=== PATIENT | female | born 1990 | race Caucasian/White ===

== ENCOUNTER 2021-02-04 13:12 | Emergency (ER) | payer OTHER, SELFPAY ==
[2021-02-04 13:25] VITALS: BP 135/76; PULSE 75; RESP 18; TEMP 36.6; O2SAT 100
--- NOTE | 2021-02-04 14:18 | ED.DENTAL ---
HPI - Dental/Oral General Chief complaint: Dental/Oral Stated complaint: abscess/mouth Source: patient Mode of arrival: ambulatory Limitations: no limitations History of Present Illness HPI Narrative: Patient is a 30-year-old female who presents with left lower dental pain x2 to 3 days. She reports taking [id number] medications with limited relief. She reports she has had broken tooth. Patient reports that she has a dental appointment on 02/08. Patient denies significant medical history. Patient denies all other complaints at this time. MD Complaint: tooth pain Related Data Home Medications Medication Instructions Recorded Confirmed clonidine HCl 0.1 mg PO HS 02/04/21 02/04/21 fluoxetine 40 mg PO DAILY 02/04/21 02/04/21 Allergies Allergy/AdvReac Type Severity Reaction Status Date / Time iodine Allergy Rash Verified 02/04/21 13:30 Review of Systems Review of Systems: CONSTITUTIONAL: Denies fever, chills, or sweats. EYES: Denies visual changes, redness, or discharge. ENT: Denies rhinorrhea, congestion, sore throat, or otalgia. Reports dental pain CARDIOVASCULAR: Denies chest pain, palpitations, or edema. RESPIRATORY: Denies cough or dyspnea. GASTROINTESTINAL: Denies abdominal pain, nausea, vomiting, or diarrhea. GENITOURINARY: Denies dysuria or hematuria. SKIN: Denies rash or itching. MUSCULOSKELETAL: Denies back pain, joint pain, or myalgia. NEUROLOGIC: Denies headache, numbness, dizziness, or weakness. PSYCHIATRIC: Denies anxiety or depression. [facility] Social History Social History (Updated 02/04/21 @ 14:26 by KITTY Flores) Smoking status: Current every day smoker Tobacco type: e-cigarettes/vaping Alcohol intake: current Alcohol use details: Occasional Substance use: never Living arrangements: with family Comments At the time of signature, I have reviewed and agree with nursing past medical, surgical, social, and family history unless otherwise noted. Please see nursing chart for further information. There is no relevant family history pertinent to the presenting complaint. Exam Narrative: GENERAL: Well-appearing, well-nourished, and in no acute distress. HEAD: Normocephalic, atraumatic. EYES: EOMI. No redness or drainage. Conjunctiva are normal. Multiple dental caries and dental fractures, poor dentition ENT: Mucous membranes pink and moist. CHEST: No respiratory distress. HEART: Regular rate and rhythm. EXTREMITIES: Normal range of motion. SKIN: Warm, dry, no rash. NEURO: No focal deficits. Alert and oriented x3. Gait steady. PSYCH: Normal affect. No signs of depression or anxiety. Course Vital Signs Vital signs: Vital Signs Temperature 36.6 C 02/04/21 13:25 Pulse Rate 75 02/04/21 13:25 Respiratory Rate 18 02/04/21 13:25 Blood Pressure 135/76 02/04/21 13:25 Pulse Oximetry 100 02/04/21 13:25 Temperature 36.6 C 02/04/21 13:25 Pulse Rate 75 02/04/21 13:25 Respiratory Rate 18 02/04/21 13:25 Blood Pressure 135/76 02/04/21 13:25 Pulse Oximetry 100 02/04/21 13:25 MDM - Dental/Oral MDM Narrative Medical decision making narrative: Patient has dental abscess and fracture of the left lower molar. Discussed with patient taking antibiotics and use of ibuprofen for pain. Patient encouraged to attend 02/08 dental appointment. Patient agrees with plan of care. Patient is stable for discharge to home with outpatient follow-up as discussed. Differential Diagnosis Differential diagnosis: Likely gingival abscess, dental caries, toothache, dental abscess and fracture of tooth Critical Care Time Critical Care Time Critical Care Time: No Discharge Plan Discharge Clinical Impression: Dental caries, Toothache, Dental abscess Patient Disposition: Home, Self-Care Condition: Stable Instructions: Antibiotic Form, Acute Dental Trauma (ED) Additional Instructions: Take antibiotics as directed. Follow-up with dentist on 02/08
== END 2021-02-04 14:39 | disposition home or self-care (01) ==
PROVIDERS: Emergency Provider Nurse Practitioner
DX: K02.9 Dental caries, unspecified (principal); K08.89 Other specified disorders of teeth and supporting structures; K04.7 Periapical abscess without sinus; F17.200 Nicotine dependence, unspecified, uncomplicated
CPT/HCPCS: 99213; G0463

== ENCOUNTER 2021-11-10 19:27 | Emergency (ER) | payer OTHER, SELFPAY ==
[2021-11-10 19:31] VITALS: BP 119/70; PULSE 90; RESP 16; TEMP 36.9; O2SAT 99
--- NOTE | 2021-11-10 20:23 | ED.FEMALEGU ---
HPI - Female Genitourinary General Chief complaint: Abdominal Pain Stated complaint: 7 weeks , cramping/spotting Time Seen by Provider: 11/10/21 19:52 History of Present Illness HPI Narrative: This is a 31-year-old female LMP 23 Sep 2021, who presents to the emergency department complaining of intermittent spotting twice today associated with cramping. She states she noted small amount of spotting after bowel movement earlier this morning, and had a repeat episode today. She denies bleeding from any other source and is sure she has had no blood in stool. She denies dysuria, fevers, chills, severe abdominal pain or passage of clots. She is attempting to wean herself from Paxil, but has otherwise had no change in her health. She is followed by OB here but has not had an initial ultrasound. She has no other complaints today. Related Data Home Medications Medication Instructions Recorded Confirmed clonidine HCl 0.1 mg tablet 0.1 mg PO HS 02/04/21 02/04/21 fluoxetine 40 mg capsule 40 mg PO DAILY 02/04/21 02/04/21 Allergies Allergy/AdvReac Type Severity Reaction Status Date / Time iodine Allergy Rash Verified 11/10/21 19:45 Review of Systems Review of Systems: CONSTITUTIONAL: Denies fever, chills, or sweats. CARDIOVASCULAR: Denies chest pain, palpitations, or edema. RESPIRATORY: Denies cough or dyspnea. GASTROINTESTINAL: Denies abdominal pain, nausea, vomiting, or diarrhea. GENITOURINARY: Cramping and vaginal bleeding, denies dysuria or hematuria. SKIN: Denies rash or itching. MUSCULOSKELETAL: Denies back pain, joint pain, or myalgia. NEUROLOGIC: Denies headache, numbness, dizziness, or weakness. PSYCHIATRIC: Denies anxiety or depression. [facility] Social History Social History Smoking status: Current every day smoker Tobacco type: e-cigarettes/vaping Alcohol intake: current Alcohol use details: Occasional Substance use: never Exam Narrative: GENERAL: Well-appearing, well-nourished, and in no acute distress. HEAD: Normocephalic, atraumatic. EYES: PERRLA and EOMI. ENT: Nares clear, no rhinorrhea or epistaxis. Mucous membranes moist. Oropharynx without tonsillar hypertrophy exudate or other lesions. CHEST: Clear to auscultation. No respiratory distress. No wheezes rales or rhonchi HEART: Regular rate and rhythm. No murmur heard. Normal peripheral pulses. ABDOMEN: Soft, nontender, nondistended, normal active bowel sounds. : (Chaperoned by female avionics electronics technician), Scant bleeding noted from the cervical os -which is closed. No noted products of conception. No purulent discharge EXTREMITIES: Normal range of motion. No edema. SKIN: Warm, dry, no rash. NEURO: No focal deficits. Alert and oriented x3. PSYCH: Normal mood and affect. Course Course Emergency Course: 20:30 - Bedside ultrasound shows intrauterine without intra-abdominal free fluid. Unable to assess cardiac activity. 20:56 - UA not concerning for urinary tract infection. Vital Signs Vital signs: Vital Signs Temperature 98.4 F 11/10/21 19:31 Pulse Rate 90 11/10/21 19:31 Respiratory Rate 16 11/10/21 19:31 Blood Pressure 119/70 11/10/21 19:31 Pulse Oximetry 99 11/10/21 19:31 Oxygen Delivery Room Air 11/10/21 19:31 Temperature 98.4 F 11/10/21 19:31 Pulse Rate 90 11/10/21 19:31 Respiratory Rate 16 11/10/21 19:31 Blood Pressure 119/70 11/10/21 19:31 Pulse Oximetry 99 11/10/21 19:31 Oxygen Delivery Room Air 11/10/21 19:31 MDM - Female Genitourinary MDM Narrative Medical decision making narrative: Clinical diagnosis: Vaginal bleeding Plan: Bedside US, UA, Type and Screen Differential Diagnosis Differential diagnosis: Likely urinary tract infection and other (miscarriage) Lab Data Labs: Lab Results 11/10/21 11/10/21 11/10/21 Range/Units 20:25 20:25 20:25 Urine Color Yellow (Yellow) Urine Appearance Sligh
[2021-11-10 20:40] LABS: Appearance Urine Slightly Cloudy (Clear); Bilirubin Urine Negative (Negative); Blood Urine 1+ (Negative); Color Urine Yellow (Yellow); Glucose Urine UA Negative (Negative); Ketones Urine Negative (Negative); Leukocyte Esterase Ur Negative LEU/UL (Negative); Nitrate Urine Negative (Negative); Protein Urine Negative (Negative); Specific Grav Ur 1.025 (1.001-1.035); Urobilinogen Urine 0.2 mg/dL (<2.0)
[2021-11-10 20:47] LABS: Amorphous Sediment Urine Few; Mucus Urine Rare /lpf; Squamous Epithelial Cell Urine Occasional /hpf (Few)
[2021-11-10 20:49] LABS: Add Urine Microscopic? YES
[2021-11-10 22:08] VITALS: BP 110/71; PULSE 75; RESP 16; O2SAT 100
== END 2021-11-10 22:07 | disposition home or self-care (01) ==
PROVIDERS: Emergency Provider Preventive Medicine Aerospace Medicine
DX: O20.0 Threatened abortion (principal); O99.331 Smoking (tobacco) complicating pregnancy, first trimester; F17.290 Nicotine dependence, other tobacco product, uncomplicated; Z3A.01 Less than 8 weeks gestation of pregnancy
CPT/HCPCS: 36415; 81001; 86850; 86900; 86901; 87491; 87591; 87808; 99284

== ENCOUNTER 2024-10-10 09:33 | Emergency (ER) | payer OTHER, SELFPAY ==
--- OUTSIDE RECORDS SUMMARY | 2024-10-10 09:34 | XMS_ITS | Clinical Summary ---
Author Organization [facility] [employer] Address [address] [place] [address] Care Team Providers Care Centrifugal Station Operator Name Role Phone Harjeet Isidro MD Primary Care Provider [phone] Source Comments [facility],non-owned Affiliates and Associated Physician Practices is amultiple site organization consisting of ambulatory clinics and hospital sitesin [place], [place], [place] and [place]. This disclosure is being madepursuant to the Care Everywhere program and may not contain all information available regarding this patient. Last updated 18.[facility] [employer] Allergies Active Allergy Reactions Criticality Noted Date Comments Iodine Rash Low 12/15/2012 Hydrocodone-Acetaminophen 06/10/2014 Medications * Be aware that medications may not be up to date on this document. Alwaysverify current medications with the patient. valACYclovir (VALTREX) 500 MG tablet Take 1 Tab by mouth once daily 30 Tab 12 10/25/2014 Active Family History Medical History Relation Name Comments Seizures Mother Relation Name Status Comments Mother Social History Tobacco Use Types Packs/Day Years Used Date Smoking Tobacco: Light Smoker Cigarettes Tobacco Cessation:Counseling Given: Yes Alcohol Use Standard Drinks/Week Comments Yes 2.5 (1 standard drink = 0.6 oz p ure alcohol) Comments No Sex and Gender Information Value Date Recorded Sex Assigned at Not on file Legal Sex Female 4:52 PM CDT Gender Identity Not on file Sexual Orientation Not on file Occupation Industry Job Start Date Job End Date Student Not on file Not on file Not on file Last Filed Vital Signs Vital Sign Reading Time Taken Comments Blood Pressure 110/70 10/25/2014 2:41 PM CDT Pulse 82 06/25/2013 9:25 AM CLAY DRY PRESS OPERATOR Temperature - - Respiratory Rate 12 10/25/2014 2:41 PM CDT Oxygen Saturation - - Inhaled Oxygen Concentration - - Weight 73.2 kg (161 lb 6.4 oz) 10/25/2014 2:41 P M CDT Height 167.6 cm (5' 6) 10/25/2014 2:41 PM CDT Body Mass Index 26.05 10/25/2014 2:41 PM CDT Plan of Treatment Health Maintenance Due Date Last Done Comments DTAP/TDAP/TD VACCINES (1 - Tdap) 09/06/2011 HEPATITIS B VACCINE (1 of 3 - 19+ 3-dose series) 09/06/2011 COVID-19 VACCINE ( - 2023-2 5 season) 2023 DEPRESSION SCREENING 04/29/2024 INFLUENZA VACCINE (Season Ended) 2024 ZOSTER VACCINE (1 of 2) 2042 HEPATITIS C SCREENING Completed 06/25/2013 HIV SCREENING Completed 06/25/2013 HIB VACCINE Aged Out No longer eligi ble based on patient's age to complete this topic HPV VACCINE Aged Out No longer eligi ble based on patient's age to complete this topic MENINGOCOCCAL (Group B) VACC INE SHARED DECISION-MAKING Aged Out No longer eligibl e based on patient's age to complete this topic MENINGOCOCCAL GROUPS A/C/Y/W VACCINE Aged Out No longer eligible b ased on patient's age to complete this topic PNEUMOCOCCAL VACCINE Aged Out No long er eligible based on patient's age to complete this topic Procedures Procedure Name Priority Date/Time Associated Diagnosis Comments HEPATITIS SCREEN ACUTE Routine 06/25/2013 10:29 AM CLAY DRY PRESS OPERATOR High risk sexual behavior HIV-1 HIV-2 ANTIBODY Routine 06/25/2013 10:29 AM CLAY DRY PRESS OPERATOR High risk sexual behavior from Last 3 Months or Most Recently Relevant to Health Maintenance Results * HIV-1 HIV-2 ANTIBODY (06/25/2013 10:29 AM CLAY DRY PRESS OPERATOR) HIV-1 Antibody O.D. Ratio <1.00 <1.00 [facility] ACCOUNT BILL Comment:Index Value: Specime n reactivity relative to the negative cutoff. HIV-1/HIV-2 Non Reactive Non Reactive [facility] ACCOUNT BILL Blood specimen (specimen) BLOOD SPECIMEN / Unknown 06/25/2013 10:29 AM CLAY DRY PRESS OPERATOR 06/25/2013 12:53 PM CLAY DRY PRESS OPERATOR Narrative Resulting Agency Comment [facility] [address] [id number] Christie Solomon MD LAB - CHEMISTRY ORDERABLES Fin al Result Performing Organization Address City/[facility] Co de Phone Number [facility] ACCOUNT BILL [address] [place] [address] * HEPATITIS SCREEN ACUTE (06/25/2013 10:29 AM CLAY DRY PRESS OPERATOR) Hepatitis A Virus Antibody IgM Negative Negative [facility] ACCOUNT BILL Hepatitis B Virus Surface Antigen Negative Negative [facility] ACCOUNT BILL Hepatitis B Core Virus Antibody IgM Negative Negative [facility] ACCOUNT BILL Hepatitis C Antibody 0.2 0.0 - 0.9 s/co ratio [facility] ACCOUNT BILL Comment: Negative: < 0.8 Indeterminate 0.8 - 0.9 Positive: > 0.9 . In order to reduce the incidence of a false positive result, the CDC recommends that all s/co ratios between 1.0 and 10.9 be confirmed by a more specific supplemental or PCR testing. [facility] offers HCV Ab w/Reflex to Verification test #[id number]. Blood specimen (specimen) BLOOD SPECIMEN / Unknown 06/25/2013 10:29 AM CLAY DRY PRESS OPERATOR 06/25/2013 12:53 PM CLAY DRY PRESS OPERATOR Narrative Resulting Agency Comment [facility] [address] [id number] Christie Solomon MD LAB - CHEMISTRY ORDERABLES Fin al Result Performing Organization Address City/[facility] Co de Phone Number [facility] ACCOUNT BILL [address] [place] [address] from Last 3 Months or Most Recently Relevant to Health Maintenance Insurance [facility] Care Teams Centrifugal Station Operator Relationship Specialty Start Date End Date Harjeet Isidro MD PCP - General Family Medicine 03/18/13
--- OUTSIDE RECORDS SUMMARY | 2024-10-10 09:35 | XMS_ITS | Referral Summary ---
Author Organization [address] Address [address] [place] [id number] Care Team Providers Care Biometrics Analyst Name Role Phone No, Physician Primary Care Provider [phone] Encounters Date Type Department Care Team Description 08/27/2024 2:47 PM CDT - 08/27/2024 5:39 PM CDT Emergency [facility] Emergency Department [address] [place], [place] [address] Sly Hood MD Chest pain of unknown etiology (Primary Dx) Discharge Disposition: Discharge to home or self care from Last 3 Months Allergies Active Allergy Reactions Criticality Noted Date Comments Hydrocodone Hydrocodone-Acetaminophen Stomach upset 015 Reaction: GI UPSET, Iodine Rash Medium 12/15/2012 Reaction: RASH, Medications [id number] 25 mg iron-1 mg -400 mg combo pack Take by mouth Active valACYclovir (VALTREX) 500 mg tabletIndications: Prophylaxis, Medical Take 500 mg by mouth 2 (two) times a day Active benzocaine-menthoL (DERMOPLAST) 20-0.5 % aerosolIndications :Minor Skin Wound Pain Apply 1 application (1 spray total) topically as needed for other or pain (perianal area for pain) 1 g 1 06/26/19 23 Active ibuprofen (ADVIL,MOTRIN) 600 mg tabletIndications: Cramps Take 1 tablet (600 mg total) by mouth every 6 (six) hours as needed for pain 30 tablet 1 06/26/19 23 Active FLUoxetine (PROzac) 20 mg capsule Take 1 capsule (20 mg total) by mouth daily 10/06/19 24 Active naproxen (NAPROSYN) 500 mg tabletIndications: Abdominal wall strain, initial encounter Take 1 tablet (500 mg total) by mouth 2 (two) times a day with meals P.r.n. pain. Collaborating physician Roderick Núñez MD 20 tablet 12/25/19 24 Active tiZANidine (ZANAFLEX) 4 mg tabletIndications: Abdominal wall strain, initial encounter Take 1 tablet (4 mg total) by mouth every 6 (six) hours as needed (Take as directed to relax muscles) Collaborating physician Roderick Núñez MD 20 tablet 12/25/[address] (PROTONIX) 40 mg EC tablet Take 1 tablet (40 mg total) by mouth daily 30 tablet 05/08/19 25 Active sucralfate (CARAFATE) 1 gram tablet Take 1 tablet (1 g total) by mouth 4 (four) times a day 120 tablet 05/08/19 25 Active dicyclomine (BENTYL) 20 mg tablet Take 1 tablet (20 mg total) by mouth 2 (two) times a day for 20 days 20 tablet 05/08/19 25 Active ondansetron ODT (ZOFRAN-ODT) 4 mg disintegrating tablet Take 1 tablet (4 mg total) by mouth every 8 (eight) hours as needed for nausea or vomiting 20 tablet 05/08/19 25 Active Active Problems Problem Noted Date Diagnosed Date Abdominal wall strain, initial encounter 024 Term 06/25/2022 Acute cervicitis 06/22/2019 Pelvic pain 06/22/2019 Dysuria 05/14/2018 Urinary frequency 05/14/2018 Flank pain, acute 05/14/2018 Nausea 05/14/2018 Acute streptococcal pharyngitis 05/09/2016 Overview (08/03/2016): Strep throat Dry skin 05/09/2016 Overview (08/03/2016): Dry skin Viral upper respiratory tract infection 05/09/19 17 Overview (08/03/2016): Viral upper respiratory tract infection Strain of shoulder 12/13/2014 Overview (08/03/2016): Left shoulder strain Upper respiratory tract infection 08/13/2014 Overview (08/03/2016): URI (upper respiratory infection) Immunizations Immunization Administration Dates Next Due Influenza, Trivalent, IM (MDV) 02/07/2016 Tdap 12/26/2015 Social History Tobacco Use Types Packs/Day Years Used Date Smoking Tobacco: Former Smokeless Tobacco: Never Tobacco Cessation:Counseling Given: Not Answered Alcohol Use Standard Drinks/Week Comments Yes 0 (1 standard drink = 0.6 oz pur e alcohol) Social Connection and Isolat ion Panel [NHANES] Answer Date Recorded Frequency of Communication w ith Friends and Family Not on file 06/25/2022 How often do you get togethe r with friends or relatives? More than three times a week 06/25/2022 How often do you attend chur ch or jehovah's witness services? Never 06/25/2022 Do you belong to any clubs o r organizations such as taoism groups, unions, fraternal or athletic groups, or school groups? No 06/25/2022 How often do you attend meet ings of the clubs or organizations you belong to? Never 06/25/2022 Are you , , di vorced, , never , or living with a partner? 06/25/2022 AUDIT-C Answer Date Recorded Q1: How often do you have a drink containing alcohol? Never 06/25/2022 Q2: How many drinks containi ng alcohol do you have on a typical day when you are drinking? Patient does not drink Q3: How often do you have si x or more drinks on one occasion? Never 06/25/2022 Overall Financial Resource Strain (CARDIA) Answe r Date Recorded How hard is it for you to pa y for the very basics like food, housing, medical care, and heating? Not hard at all 06/25/2022 PHQ-2 Answer Date Recorded PHQ-2 Total Score (If total score is 3 or more points, staff should administer the PHQ-9) 0 06/25/2022 [facility] [employer] - Occupational Stress Questionnaire Answer Date Recorded Do you feel stress - tense, restless, nervous, or anxious, or unable to sleep at night because your mind is troubled all the time - these days? Not at all 06/25/2022 Exercise Vital Sign Answer Date Recorde d On average, how many days pe r week do you engage in moderate to strenuous exercise (like a brisk walk)? 3 days 06/25/2022 On average, how many minutes do you engage in exercise at this level? 30 min 06/25/2022 Hunger Vital Sign Answer Date Recorded Within the past 12 months, y ou worried that your food would run out before you got the money to buy more. Never true 06/25/19 23 Within the past 12 months, t he food you bought just didn't last and you didn't have money to get more. Never true 06/25/2022 PRAPARE - Transportation Answer Date Re corded In the past 12 months, has l ack of transportation kept you from medical appointments or from getting medications? No 05/31 In the past 12 months, has l ack of transportation kept you from meetings, work, or from getting things needed for daily living? No 06/25/2022 Housing Stability Vital Sign Answer Boaz e Recorded In the last 12 months, was t here a time when you were not able to pay the mortgage or rent on time? No 06/25/2022 In the last 12 months, how many places have you lived? 1 06/25/2022 In the last 12 months, was t here a time when you did not have a steady place to sleep or slept in a chcf (including now)? No 06/25/2022 Personal Safety Answer Date Recorded Have you ever been in or are you currently in a harmful physical or emotional relationship or is someone making you feel afraid or unsafe? 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 Gender Identity Not on file Sexual Orientation Not on file Last Filed Vital Signs Vital Sign Reading Time Taken Comments Blood Pressure 110/58 08/27/2024 5:15 PM CDT Pulse 84 08/27/2024 5:15 PM CDT Temperature 36.4 C (97.6 F) 08/27/2024 2:45 PM CDT Respiratory Rate 20 08/27/2024 5:15 PM CDT Oxygen Saturation 99% 08/27/2024 5:15 PM CDT Inhaled Oxygen Concentration - - Weight 99.8 kg (220 lb) 08/27/2024 2:45 PM CDT Height 167.6 cm (5' 6) 08/27/2024 2:45 PM CDT Body Mass Index 35.51 08/27/2024 2:45 PM CDT Plan of Treatment Not on file Procedures Procedure Name Priority Date/Time Associated Diagnosis Comments TROPONIN T HIGH-SENSITIVITY 2-HOUR Timed 08/27/2024 4:40 PM CDT HCG, URINE, QUALITATIVE STAT 08/27/2024 3:42 PM CDT DRUGS OF ABUSE SCREEN, URINE WITHOUT CONFIRMATION STAT 08/27/2024 3:42 PM CDT URINALYSIS AND REFLEX TO MICROSCOPIC AND CULTURE STAT 08/27/2024 3:42 PM CDT D-DIMER, QUANTITATIVE Add-On 08/27/2024 3:35 PM CDT XR CHEST 1 VIEW ED 08/27/2024 3:10 PM CDT EGFR STAT 08/27/2024 3:02 PM CDT PRO B-TYPE NATRIURETIC PEPTIDE Add-On 08/27/2024 3:02 PM CDT DIFFERENTIAL AUTO STAT 08/27/2024 3:0 2 PM CDT TROPONIN T HIGH-SENSITIVITY SERIES (BASELINE, 2HR, 4HR, 6HR) STAT 08/27/2024 3:02 PM CDT COMPREHENSIVE METABOLIC PANEL STAT 08/27/2024 3:02 PM CDT CBC WITH AUTO DIFFERENTIAL STAT 08/27/2024 3:02 PM CDT ECG 12-LEAD STAT 08/27/2024 2:48 PM CDT from Last 3 Months Results * Troponin T high-sensitivity 2-hour (08/27/2024 4:40 PM CDT) Trop T hs <6 <=14 ng/L Comment: Interpretive Data For further hscTnT resources including the diagnostic algorithm and an aid in interpretation, copy and paste this link: https://nrl.testcatalog.org/show/hsTrop Current Interpretive Data last revised 2020. Trop T hs delta 0 ng/L [facility] Trop T hs interp Insignificant [facility] Blood 08/27/2024 4:40 PM CDT 08/27/2024 4:42 PM CDT Sly Hood MD LAB BLOOD ORDERABLES Final R esult [facility] ([facility]) 1 [facility] Department [place] [address] * Urinalysis reflex to microscopic and culture Urine (08/27/2024 3:42 PM CDT) Color, ur Straw Yellow Clarity, ur Clear Clear [facility] ([facility]) Specific gravity, ur 1.008 1.003 - 1.030 [facility] pH, urine 7.5 [facility] ([place]) Comment: Interpretive Data U rine pH is affected by diet, medications, systemic acid-base disturbances, and renal tubular function. pH may affect urinary stone formation. For example, urine pH below 6.0 may help reduce the tendency for calcium phosphate stones and pH greater than 6.0 may reduce the tendency for uric acid stone formation. Source: [facility] [place] Current Interpretive Data was last revised on 2017 Protein, ur ql Negative Negative [facility] ([place]) Glucose, ur ql Negative Negative [facility] ([place]) Ketones, ur Negative Negative [facility]) Bilirubin, ur Negative Negative [facility] ([place]) Blood, ur Negative Negative [facility]) Urobilinogen, ur <2.0 <2.0 mg/dL [facility] ([place]) Nitrite, ur Negative Negative [facility] ([facility]) Leukocyte esterase, ur Negative Negative [facility] UA reflex comment Reflex conditions for microscopic UA and culture not met. [facility] Urine 08/27/2024 3:42 PM CDT 08/27/2024 3:45 PM CDT Sly Hood MD LAB MICROBIOLOGY - GENERAL O RDERABLES Final Result [facility] 1 [facility] Department of Laboratories [id number] * Drugs of Abuse Screen, Urine without Confirmation (08/27/2024 3:42 PM CDT) Amphetamine, ur Not Detected CutOff 500ng/mL Comment: Interpretive Data - Amphetamines: Samples containing greater than 500 ng/mL d-methamphetamine or other cross-reacting amphetamine compounds are reported as positive. Amphetamine immunoassays are subject to significant false positive rates due to cross-reactivity of non-amphetamine drugs. Confirmatory testing required for definitive results. Current Interpretive Data was last reviewed 2022. Barbiturates, ur Not Detected CutOff 200ng/mL [facility] Comment: Interpretive Data - Barbiturates: Samples containing greater than 200 ng/mL secobarbital or other cross-reacting barbiturate compounds are reported as positive. False positive and false negative results are possible. Confirmatory testing required for definitive results. Current Interpretive Data was last reviewed 2022. Benzodiazepines, ur Not Detected CutOff 100ng/mL [facility] Comment: Interpretive Data - Benzodiazepines: Samples containing greater than 100 ng/mL nordiazepam or other cross-reacting compounds are reported as positive. False positive and false negative results are possible. Confirmatory testing required for definitive results. Current Interpretive Data was last reviewed 2022. Cannabinoids, ur Not Detected CutOff 50 ng/mL [facility] Comment: Interpretive Data - Cannabinoids: Samples containing greater than 50 ng/mL delta-9 THC -COOH or other cross- reacting compounds are reported as positive. False positive and false negative results are possible. Confirmatory testing required for definitive results. Current Interpretive Data was last reviewed 2022. Cocaine, ur Not Detected CutOff 150ng/mL [facility] ([facility]) Comment: Interpretive Data - Cocaine: Samples containing greater than 150 ng/mL benzoylecgonine or other cross- reacting compounds are reported as positive. False positive and false negative results are possible. Confirmatory testing required for definitive results. Current Interpretive Data was last reviewed 2022. Fentanyl, Ur Not Detected CutOff 5 ng/mL [facility] Comment: Interpretive Data - Fentanyl: Samples containing greater than 5 ng/mL norfentanyl, fentanyl, or other cross-reacting fentanyl compounds are reported as positive. False positive and false negative results are possible. Confirmatory testing required for definitive results. Current Interpretive Data was last reviewed 2023. Methadone, ur Not Detected CutOff 300ng/mL [facility] Comment: Interpretive Data - Methadone: Samples containing greater than 300 ng/mL d,l-methadone or other cross-reacting compounds are reported as positive. False positive and false negative results are possible. Confirmatory testing required for definitive results. Current Interpretive Data was last reviewed 2022. Opiates, ur Not Detected CutOff 300ng/mL [facility] ([facility]) Comment: Interpretive Data - Opiates: Samples containing greater than 300 ng/mL morphine or other cross-reacting compounds are reported as positive. False positive and false negative results are possible. Confirmatory testing required for definitive results. Current Interpretive Data was last reviewed 2022. Oxycodone, ur Not Detected CutOff 100ng/mL [facility] ([facility]) Comment: Interpretive Data - Oxycodone: Samples containing greater than 100 ng/mL oxycodone or other cross-reacting compounds are reported as positive. False positive and false negative results are possible. Confirmatory testing required for definitive results. Current Interpretive Data was last reviewed 2022. Phencyclidine, ur Not Detected CutOff 25 ng/mL [facility] ([facility]) Comment: Interpretive Data - Phencyclidine: Samples containing greater than 25 ng/mL phencyclidine or other cross-reacting compounds are reported as positive. False positive and false negative results are possible. Confirmatory testing required for definitive results. Current Interpretive Data was last reviewed 2022. Urine Creatinine 41 mg/dL [facility] ([facility]) Comment: Interpretive Data Urine Creatinine: < 10 mg/dL is extremely dilute = or > 10 but < 20 mg/dL is dilute = or > 20 mg/dL is normal Current Interpretive Data was last revised on 2017. Urine 08/27/2024 3:4 2 PM CDT 08/27/2024 3:45 PM CDT Narrative [facility] - 08/27/2024 4:10 PM CDT Drug of Abuse screening is performed by immunoassay for medical purposes only. This is not to be used for Pain Management purposes. Sly Hood MD LAB URINE ORDERABLES Final R esult Performing Organization Address City/[facility]/ZIP Co de Phone Number [facility] 1 [facility] [place] [address] * hCG, urine, qualitative (08/27/2024 3:42 PM CDT) HCG, ur Negative Negative Urine 08/27/2024 3:42 PM CDT 08/27/2024 3:45 PM CDT Sly Hood MD LAB URINE ORDERABLES Final R [facility] Performing Organization Address City/[facility] [[email or web address]] Co de Phone Number [facility] 1 [facility] [place] [address] * D-dimer, quantitative (08/27/2024 3:35 PM CDT) D-Dimer 363 <=499 ng/mL FEU [facility] Comment: Interpretive data FDA approved the D-dimer, in conjunction with a low or moderate pretest probability score, to exclude venous thromboembolic events (VTE) (PE and DVT) in outpatients when the D-dimer result is < 500 ng/ml FEU. Evidence supports using an age-adjusted D-dimer cut-off for outpatients older than 50 (age x 10) to improve specificity without sacrificing sensitivity. Example: age 68, VTE cut-off 680 ng/ml FEU. References; Schouten HT et al. Brit Med J. 2013;346:f2492. Karly et al. Annals Int Med. 2015;163:701-11. Current interpretive data was last revised on 2019. Blood 08/27/2024 3:35 PM CDT 08/27/2024 3:41 PM CDT Sly Hood MD LAB BLOOD ORDERABLES Final R esult [facility] 1 [facility] Department of Laboratories [address] * XR Chest 1 Vw Portable (if patient condition/safety warrant portable) (08/27/2024 3:10 PM CDT) Anatomical Region Laterality Modality Body, Chest N/A Computed Radiogr aphy 08/27/2024 3:39 PM CDT Narrative 08/27/2024 3:41 PM CDT EXAM DESCRIPTION: XR CHEST 1 VIEW REASON FOR STUDY: chest pain Pt to ED for c/o chest pain that radiates to her left shoulder and dizziness x 1 hour. Pt reports it started with SOB 2 hours ago. No cardiac hx. TECHNIQUE: Single frontal radiographic view(s) of the chest. COMPARISON: 11/16/2019 FINDINGS: The heart, mediastinum, and pulmonary vasculature are grossly unremarkable. There is no definite evidence of a pneumothorax. There is no definite evidence of focal consolidation or pleural effusion. Osseous structures are acutely grossly stable IMPRESSION: No acute cardiopulmonary abnormality. THIS IS AN ELECTRONICALLY VERIFIED FINAL REPORT 08/27/2024 3:41 PM - Electronically signed by Kostas Heart D.O. PS: PS Report ID: [id number] Reading Location: [id number] Procedure Note Kostas Heart DO - 08/27/2024 EXAM DESCRIPTION: XR CHEST 1 VIEW REASON FOR STUDY: chest pain Pt to ED for c/o chest pain that radiates to her left shoulder anddizziness x 1 hour. Pt reports it started with SOB 2 hours ago. No cardiac hx. TECHNIQUE: Single frontal radiographic view(s) of the chest. COMPARISON: 11/16/2019 FINDINGS: The heart, mediastinum, and pulmonary vasculature are grosslyunremarkable. There is no definite evidence of a pneumothorax. There is no definite evidence of focal consolidation or pleural effusion. Osseous structures are acutely grossly stable IMPRESSION: No acute cardiopulmonary abnormality. THIS IS AN ELECTRONICALLY VERIFIED FINAL REPORT 08/27/2024 3:41 PM - Electronically signed by Kostas Heart D.O. PS: PS Report ID: [id number] Reading Location: [place] [address] Sly Hood MD IMG XR PROCEDURES Final Resu lt * Troponin T high-sensitivity series (baseline, 2hr, 4hr, 6hr) (08/27/2024 3:02 PM CDT) Pathologist [facility] Trop T hs <6 <=14 ng/L Comment: Interpretive Data For further hscTnT resources including the diagnostic algorithm and an aid in interpretation, copy and paste this link: https://nrl.testcatalog.org/show/hsTrop Current Interpretive Data last revised 2020. Blood 08/27/2024 3:02 PM CDT 08/27/2024 3:06 PM CDT Sly Hood MD LAB BLOOD ORDERABLES Final R esult [facility] Department of Laboratories [address] * eGFR (08/27/2024 3:02 PM CDT) [facility] eGFR >90 >=60 mL/min/1. 73 m2 Comment: Interpretive Data Reference Interval Normal >/= 90 mL/min/1.73m2 Mildly decreased* 60 - 89 mL/min/1.73m2 Mildly to moderately decreased 45 - 59 mL/min/1.73m2 Moderately to severely decreased 30 - 44 mL/min/1.73m2 Severely decreased 15 - 29 mL/min/1.73m2 Kidney Failure < 15 mL/min/1.73m2 *Relative to young adult level Estimated glomerular filtration rate is determined by the 2020 CKD-EPI equation recommended by the National Kidney Foundation (A Unifying Approach to GFR Estimation: Recommendations of the NKF-ASK Task Force on Reassessing the Inclusion of Race in Diagnosing Kidney Disease, JASN 2020). The CKD-EPI equation should not be used for patients with unstable renal function and has not been validated in children and those over 70. Current interpretive data was last reviewed 2021. Blood 08/27/2024 3:02 PM CDT 08/27/2024 3:06 PM CDT us Sly Hood MD LAB BLOOD ORDERABLES Final R esult [facility] 1 [facility] Department of Laboratories [address] * (ABNORMAL) Differential, auto (08/27/2024 3:02 PM CDT) Neutrophil abs 8.13(H) 1.50 - 6.50 K/cumm Imm gran abs 0.04 0.00 - 0.10 K/cumm [facility] ([facility]) Lymphocyte abs 2.82 0.80 - 3.30 K/cumm [facility] ([place]) Monocyte abs 0.81(H) 0.20 - 0.80 K/cumm [facility] ([place]) Eosinophil abs 0.07 0.00 - 0.50 K/cumm [facility] ([place]) Basophil abs 0.07 0.00 - 0.10 K/cumm [facility] ([place]) Neutrophil pct 68.1 % [facility] ([place]) Comment: Interpretive Data Percent cell count reference ranges are not reported, since discordance with absolute values may lead to misinterpretation of CBC data. Current Interpretive Data was last revised on 2017. Imm gran pct 0.3 % [facility] ([place]) Comment: Interpretive Data Percent cell count reference ranges are not reported, since discordance with absolute values may lead to misinterpretation of CBC data. Current Interpretive Data was last revised on 2017. Lymphocyte pct 23.6 % [facility] ([place]) Comment: Interpretive Data Percent cell count reference ranges are not reported, since discordance with absolute values may lead to misinterpretation of CBC data. Current Interpretive Data was last revised on 2017. Monocyte pct 6.8 % [facility] ([place]) Comment: Interpretive Data Percent cell count reference ranges are not reported, since discordance with absolute values may lead to misinterpretation of CBC data. Current Interpretive Data was last revised on 2017. Eosinophil pct 0.6 % [facility] ([place]) Comment: Interpretive Data Percent cell count reference ranges are not reported, since discordance with absolute values may lead to misinterpretation of CBC data. Current Interpretive Data was last revised on 2017. Basophil pct 0.6 % [facility] ([place]) Comment: Interpretive Data Percent cell count reference ranges are not reported, since discordance with absolute values may lead to misinterpretation of CBC data. Current Interpretive Data was last revised on 2017. Blood 08/27/2024 3:02 PM CDT 08/27/2024 3:06 PM CDT us Sly Hood MD LAB BLOOD ORDERABLES Final R esult [facility] 1 [facility] Department of Laboratories [address] * Pro B-type natriuretic peptide (08/27/2024 3:02 PM CDT) NT-proBNP 39 <=300 pg/mL Comment: Interpretive Comments: A. Dyspnea in Acute Care Setting All Ages: < 300 pg/ml, acute heart failure unlikely. < 50 yrs: 300 - 450 pg/ml, further investigation warranted. > 450 pg/ml, acute heart failure likely. 50 - 74 yrs: 300 - 900 pg/ml, further investigation warranted. > 900 pg/ml, acute heart failure likely . > or = 75 yrs: 450 - 1800 pg/ml, further investigation warranted. > 1800 pg/ml, acute heart failure likely. B. Non-acute Setting < 75 yrs < 125 pg/ml, rules out heart failure. > or = 125 pg/ml, further investigation warranted. > or = 75 yrs < 450 pg/ml, rules out heart failure. > or = 450 pg/ml, further investigation warranted. - Knowledge of each individual patient's NT-proBNP range may be more useful than using similar cut-points for every patient. Please note that marked elevations in NT-proBNP levels may be observed in state other than Left Ventricular Congestive Failure, including: acute coronary syndromes, right heart strain/failure (including pulmonary embolism and cor pulmonale), critical illness, renal failure, as well as advanced age. - References: 1. Franklin VAIL et.al. Eur Heart J. 2006:27:330-337. 2. Marzena RW, Sandrine PASCUAL. J. AM [place] Cardiol: Cardiovasc Imag. 2009;2: 216- 225. Interpretive Data Last Revised Date: 2017. Blood 08/27/2024 3:02 PM CDT 08/27/2024 3:34 PM CDT Sly Hood MD LAB BLOOD ORDERABLES Final R esult [facility] ([facility] 1 [facility] Department of Laboratories [address] * (ABNORMAL) CBC with auto differential (08/27/2024 3:02 PM CDT) WBC 11.94(H) 3.80 - 9.90 K/cumm Hgb 12.9 11.9 - 15.5 g/dL [facility] Hct 38.5 35.6 - 45.5 % [facility] ([place]) Plt 374 150 - 400 K/cumm [facility] MPV 8.6(L) 9.1 - 12.3 fL [facility] RBC 4.32 3.90 - 5.20 M/cumm [facility] ([place]) MCV 89.1 81.3 - 96.4 fL [facility] ([facility]) MCH 29.9 27.1 - 33.3 pg [facility] ([facility]) MCHC 33.5 32.3 - 35.7 g/dL [facility] ([facility]) RDW CV 11.9 11.1 - 14.9 % [facility] ([place]) RDW SD 38.4 35.7 - 48.1 fL [facility] ([place]) NRBC abs 0.00 0.00 - 0.01 K/cumm [facility] ([place]) Blood Venous blood specimen / Unknown 08/27/2024 3:02 PM CDT 08/27/2024 3:06 PM CDT Sly Hood MD LAB BLOOD ORDERABLES Final R esult [facility] ([facility]) 1 [facility] Department of Laboratories [address] * Comprehensive metabolic panel (08/27/2024 3:02 PM CDT) Sodium 135 135 - 145 mmol/L Potassium, pl 3.7 3.3 - 4.9 mmol/L [facility] ([place]) Chloride 98 97 - 110 mmol/L [facility] ([place]) CO2 23 22 - 32 mmol/L [facility] ([place]) Anion gap 14 2 - 15 mmol/L [facility] ([place]) BUN 9 6 - 25 mg/dL [facility] ([place]) Creatinine 0.64 0.60 - 1.10 mg/dL [facility] ([place]) Glucose 105 70 - 199 mg/dL [facility] ([place]) Comment: Interpretive Data Fasting glucose >/= 126 mg/dl is diagnostic for diabetes. Fasting is defined as no caloric intake for at least 8 hours. Fasting glucose between 100 mg/dl to 125 mg/dl is diagnostic of prediabetes. In a patient with classic symptoms of hyperglycemia or hyperglycemic crisis, a random glucose >/= 200 mg/dl is diagnostic for diabetes. In the absence of unequivocal hyperglycemia, results should be confirmed by repeat testing. The classification and Diagnosis of Diabetes Diabetes Care 202; 46: S19-S40. Current interpretive data was last revised 2022. Calcium 9.0 8.5 - 10.3 mg/dL [facility] ([place]) Bilirubin, total 0.2 0.1 - 1.2 mg/dL [facility] ([place]) Protein, pl 7.2 6.5 - 8.5 g/dL [facility] ([place]) Albumin 3.9 3.5 - 5.0 g/dL [facility] ([place]) Alk phos 100 40 - 130 Units/L [facility] ([place]) ALT 26 7 - 45 Units/L [facility] ([place]) AST 21 10 - 45 Units/L [facility] ([place]) Blood 08/27/2024 3:02 PM CDT 08/27/2024 3:06 PM CDT Sly Hood MD LAB BLOOD ORDERABLES Final R esult Performing Organization Address City/[facility]/ZIP Co de Phone Number [facility] ([place]) 1 [facility] Department [place] [address] * ECG 12 lead (08/27/2024 2:48 PM CDT) 08/27/2024 2:48 PM CDT Narrative [facility] - 08/28/2024 7:02 AM CDT Vent Rate: 74 bpm RR Interval: 805 msec MS Interval: 146 msec QRS Duration: 96 msec QT Interval: 378 msec QTC Interval: 405 msec P-R-T [place]: 89 - 14 - 96 degrees IMPRESSION: SINUS RHYTHM MODERATE ST DEPRESSION [0.05+ mV ST DEPRESSION] ABNORMAL QRS-T ANGLE [QRS-T AXIS DIFFERENCE > 60] ABNORMAL ECG Electronically Signed By: Ishan Dominguez MD Sly Hood MD ECG ORDERABLES Final Result Performing Organization Address City/[facility]/ZIP Co de Phone Number [facility] from Last 3 Months Insurance IDPA [facility] MEDICAID [facility] CIG OPEN ACCESS CIGNA ALLEGIANCE [facility] MEDICAID [facility] CIGNA OPEN ACCESS [facility]GI[facility] CIGYAA ALLEGIANCE Advance Directives For more information, please contact: [phone] * Full Code (Latest Code Status on File) Date Activated Date Inactivated Comments 06/25/2022 9:41 PM 06/27/2022 4:29 PM * Full Code Date Activated Date Inactivated Comments 06/25/2022 7:04 AM 06/25/2022 9:41 PM Full CPR in case of cardiopulmonary arrest Care Teams Biometrics Analyst Relationship Specialty Start Date End Date No, Physician PCP - General 12/30/17
--- OUTSIDE RECORDS SUMMARY | 2024-10-10 09:35 | XMS_ITS | Clinical Summary ---
Author Organization [address] Address [address] [place] [id number] Care Team Providers Care Fruit Loader Name Role Phone No, Physician Primary Care Provider [phone] Allergies Active Allergy Reactions Criticality Noted Date Comments Hydrocodone Hydrocodone-Acetaminophen Stomach upset 015 Reaction: GI UPSET, Iodine Rash Medium 12/15/2012 Reaction: RASH, Medications [id number] 25 mg iron-1 mg -400 mg [...] directed to relax muscles) Collaborating physician Roderick úNñez MD 20 tablet 12/25/19 24 Active pantoprazole [...] 08/13/2014 Overview (08/03/2016): URI (upper respiratory infection) Encounters Date Type Department Care Team Description 08/27/2024 2:47 PM CDT - 08/27/2024 5:39 PM CDT Emergency [facility] Emergency Department [address] [place] [address] Sly Hood MD Chest pain of unknown etiology (Primary Dx) Discharge Disposition: Discharge to home or self care from Last 3 Months Immunizations Immunization Administration Dates Next Due Influenza, Trivalent, IM (V) 02/07/2016 Tdap 12/26/2015 Surgical History Surgery Date Site/Laterality Comments CHOLECYSTECTOMY Cholecystectomy Medical History Medical History Date Comments Mental disorder major depressive disorder and anxiety Herpes depression Social History Tobacco Use Types Packs/Day Years [...] often do you attend chur ch or voodoo services? Never 06/25/2022 Do you belong to any clubs o r organizations such as jainism groups, unions, fraternal or athletic groups, or [...] staff should administer the PHQ-9) 0 06/25/2022 [facility] - Occupational Stress [...] place to sleep or slept in a group home (including now)? No 06/25/2022 Personal Safety Answer Date Recorded Have you ever been in or are you currently in a harmful physical or emotional relationship or is someone making you feel afraid or unsafe? 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 Gender Identity Not on file Sexual Orientation Not on file Obstetrics History Para Term AB IAB SAB Ectopic Multiple Livin g Live Births 3 2 2 0 1 0 1 0 0 2 2 Date Outcome GA Total Labor Labor/2nd/3rd Weight Sex Type Anes PTL Louise A1 A5 Name Clin Term SAB 2022 Term 39w 2d 4h 14m 2h 31m/1h 27m/0h 16m 3.447 kg (7 lb 9.6 oz) M Vag-S pont Epidur al N Livin g 7 9 KIARA CROOKS Geoffr ey Lowell, MD Complications:None Delivery Location:This Facil ity ([facility]) Comments 2019 Last Filed Vital Signs Vital Sign Reading [...] 08/27/2024 2:45 PM CDT Plan of Treatment Health Maintenance Due Date Last Done Comments Cervical Cancer Screening 1992 Hepatitis C Screening 1992 Varicella Vaccines (1 of 2 - 13+ 2-dose series) 2005 Hepatitis B Screening 2010 Regular Well Visit/Exam 18-64 2010 Depression Screening 06/01/2023 06/01/2022, 06/01/2022, 02/13/2022, Additional history exists Covid-19 Vaccine ( season) 2023 12/28/2020, 12/07/2020 Influenza Vaccine (Season Ended) 2024 04/01/2017, 02/21/2016, 02/07/2016 DTaP/Tdap/Td Vaccine (2 - Td or Tdap) 12/25/2025 12/26/2015 HPV Vaccines Aged Out No longer eligi ble based on patient's age to complete this topic Pneumococcal vaccine <65 Aged Out No longer eligible based on patient's age to complete [...] ORDERABLES Final R esult Performing Organization Address [facility] Co de Phone Number [facility] ([place]) 1 [facility] Department [place] [address] * Urinalysis reflex to microscopic and culture [...] tendency for uric acid stone formation. Source: [facility] Laboratories Current Interpretive Data was last revised on [...] [facility] ([place]) Leukocyte esterase, ur Negative Negative [facility] ([place]) UA reflex comment Reflex conditions for microscopic UA and culture not met. [facility] ([place]) Urine 08/27/2024 3:42 PM CDT 08/27/2024 3:45 PM CDT Sly Hood MD LAB MICROBIOLOGY - GENERAL O RDERABLES Final Result Performing Organization Address City/[facility]/ZIP Co de Phone Number [facility] ([place]) 1 [facility] Department [place] [address] * Drugs of Abuse Screen, Urine without [...] 2022. Barbiturates, ur Not Detected CutOff 200ng/mL [facility] ([place]) Comment: Interpretive Data - Barbiturates: Samples containing greater than 200 ng/mL secobarbital or other cross-reacting barbiturate compounds are reported as positive. False positive and false negative results are possible. Confirmatory testing required for definitive results. Current Interpretive Data was last reviewed 2022. Benzodiazepines, ur Not Detected CutOff 100ng/mL [facility] ([place]) Comment: Interpretive Data - Benzodiazepines: Samples containing greater than 100 ng/mL nordiazepam or other cross-reacting compounds are reported as positive. False positive and false negative results are possible. Confirmatory testing required for definitive results. Current Interpretive Data was last reviewed 2022. Cannabinoids, ur Not Detected CutOff 50 ng/mL [facility] ([place]) Comment: Interpretive Data - Cannabinoids: Samples [...] 2023. Methadone, ur Not Detected CutOff 300ng/mL [facility] ([place]) Comment: Interpretive Data - Methadone: Samples containing greater than 300 ng/mL d,l-methadone or other cross-reacting compounds are reported as positive. False positive and false negative results are possible. Confirmatory testing required for definitive results. Current Interpretive Data was last reviewed 2022. Opiates, ur Not Detected CutOff 300ng/mL [facility] ([place]) Comment: Interpretive Data - Opiates: Samples containing greater than 300 ng/mL morphine or other cross-reacting compounds are reported as positive. False positive and false negative results are possible. Confirmatory testing required for definitive results. Current Interpretive Data was last reviewed 2022. Oxycodone, ur Not Detected CutOff 100ng/mL [facility] ([place]) Comment: Interpretive Data - Oxycodone: Samples containing greater than 100 ng/mL oxycodone or other cross-reacting compounds are reported as positive. False positive and false negative results are possible. Confirmatory testing required for definitive results. Current Interpretive Data was last reviewed 2022. Phencyclidine, ur Not Detected CutOff 25 ng/mL [facility] ([place]) Comment: Interpretive Data - Phencyclidine: Samples containing greater than 25 ng/mL phencyclidine or other cross-reacting compounds are reported as positive. False positive and false negative results are possible. Confirmatory testing required for definitive results. Current Interpretive Data was last reviewed 2022. Urine Creatinine 41 mg/dL [facility] ([place]) Comment: Interpretive Data Urine Creatinine: < 10 mg/dL is extremely dilute = or > 10 but < 20 mg/dL is dilute = or > 20 mg/dL is normal Current Interpretive Data was last revised on 2017. Urine 08/27/2024 3:42 PM CDT 08/27/2024 3:45 PM CDT Narrative [facility] ([place]) - 08/27/2024 4:10 PM CDT Drug of Abuse screening is performed by immunoassay for medical purposes only. This is not to be used for Pain Management purposes. Sly Hood MD LAB URINE ORDERABLES Final R esult Performing Organization Address City/[facility]/ZIP Co de Phone Number [facility] ([place]) [address] [place] [address] * hCG, urine, qualitative (08/27/2024 3:42 PM CDT) HCG, ur Negative Negative Urine 08/27/2024 3:42 PM CDT 08/27/2024 3:45 PM CDT Sly Hood MD LAB URINE ORDERABLES Final R esult Performing Organization Address [facility] de Phone Number [facility] ([place]) [address] [place] [address] * D-dimer, quantitative (08/27/2024 3:35 PM CDT) D-Dimer 363 <=499 ng/mL FEU [facility] ([place]) Comment: Interpretive data FDA approved the D-dimer, [...] MD LAB BLOOD ORDERABLES Final R esult [facility] [place] 1 [facility] Department [place] [address] * XR Chest 1 Vw Portable (if [...] Kostas Heart D.O. PS: PS Report ID: [id number] Reading Location: [place] [address] Procedure Note Kostas Heart DO - 08/27/2024 [...] Kostas Heart D.O. PS: PS Report ID: [id number] Reading Location: [id number] Sly Hood MD IMG XR PROCEDURES Final Resu lt * Troponin T high-sensitivity series (baseline, 2hr, 4hr, 6hr) (08/27/2024 3:02 PM CDT) Trop T hs <6 <=14 ng/L Comment: Interpretive Data For further hscTnT resources including the diagnostic algorithm and an aid in interpretation, copy and paste this link: https://nrl.testcatalog.org/show/hsTrop Current Interpretive Data last revised 2020. Blood 08/27/2024 3:02 PM CDT 08/27/2024 3:06 PM CDT Sly Hood MD LAB BLOOD ORDERABLES Final R esult [facility] ([place]) 3 [facility] Department [place] [address] * eGFR (08/27/2024 3:02 PM CDT) eGFR >90 >=60 mL/min/1. 73 m2 Comment: [...] BLOOD ORDERABLES Final R esult [facility] ([place]) 1 [facility] Department [place] [address] * (ABNORMAL) Differential, auto (08/27/2024 3:02 PM [...] revised on 2017. Lymphocyte pct 23.6 % [facility] ([place]) Comment: Interpretive Data Percent cell count reference ranges are not reported, since discordance with absolute values may lead to misinterpretation of CBC data. Current Interpretive Data was last revised on 2017. Monocyte pct 6.8 % [facility] ([place]) Comment: Interpretive Data [...] BLOOD ORDERABLES Final R esult [facility] ([place]) 1 [facility] Department [place] [address] * Pro B-type natriuretic peptide (08/27/2024 3:02 [...] Heart J. 2006:27:330-337. 2. Marzena RW, Sandrine AM. J. AM [place] Cardiol: Cardiovasc Imag. 2009;2: 216- 225. Interpretive Data Last Revised Date: 2017. Blood 08/27/2024 3:02 PM CDT 08/27/2024 3:34 PM CDT Sly Hood MD LAB BLOOD ORDERABLES Final R esult [facility] ([place]) 1 [facility] Department [place] [address] * (ABNORMAL) CBC with auto differential (08/27/2024 [...] ([place]) MCV 89.1 81.3 - 96.4 fL [facility] ([place]) MCH 29.9 27.1 - 33.3 pg [facility] ([place]) MCHC 33.5 32.3 - 35.7 g/dL [facility] ([place]) RDW CV 11.9 11.1 - 14.9 % [facility] ([place]) RDW SD 38.4 35.7 - 48.1 fL [facility] ([place]) NRBC abs 0.00 0.00 - 0.01 K/cumm [facility] ([place]) Blood Venous blood specimen / Unknown 08/27/2024 3:02 PM CDT 08/27/2024 3:06 PM CDT Sly Hood MD LAB BLOOD ORDERABLES Final R esult [facility] ([place]) 1 [facility] Department [place] [address] * Comprehensive metabolic panel (08/27/2024 3:02 PM CDT) Sodium 135 135 - 145 mmol/L Potassium, pl 3.7 3.3 - 4.9 mmol/L [facility] ([place]) Chloride 98 97 - 110 mmol/L [facility] ([place]) CO2 23 22 - 32 mmol/L [facility] ([place]) Anion gap 14 2 - 15 mmol/L [facility] ([place]) BUN 9 6 - 25 mg/dL [facility] Creatinine 0.64 0.60 - 1.10 mg/dL [facility] ([place]) Glucose 105 70 - 199 mg/dL [facility] Comment: Interpretive Data Fasting glucose >/= [...] ORDERABLES Final R esult Performing Organization Address City/[facility] Co de Phone Number [facility] ([place]) 1 [facility] Department [place] [address] * ECG 12 lead (08/27/2024 2:48 PM CDT) 08/27/2024 2:48 PM CDT Narrative [facility] - 08/28/2024 7:02 AM CDT Vent Rate: 74 bpm RR Interval: 805 msec MT Interval: 146 msec QRS Duration: 96 msec QT Interval: 378 msec QTC Interval: 405 msec P-R-T [place]: 89 - 14 - 96 degrees IMPRESSION: SINUS RHYTHM MODERATE ST DEPRESSION [0.05+ mV ST DEPRESSION] ABNORMAL QRS-T ANGLE [QRS-T AXIS DIFFERENCE > 60] ABNORMAL ECG Electronically Signed By: Ishan Dominguez MD Sly Hodo MD ECG ORDERABLES Final Result Performing Organization Address [facility] Co de Phone Number [facility] from Last 3 Months Insurance IDPA [facility] MEDICAID [facility] CIGNA OPEN ACCESS CIGNA ALLEGIANCE [facility] MEDICAID IDPA [employer] [facility]ESS CIGNA ALLEGIANCE [facility] ALLEGIANCE [place] ALLEGIANCE Advance Directives For more information, please contact: [phone] * Full Code (Latest Code Status on File) Date Activated Date Inactivated Comments 06/25/2022 9:41 PM 06/27/2022 4:29 PM * Full Code Date Activated Date Inactivated Comments 06/25/2022 7:04 AM 06/25/2022 9:41 PM Full CPR in case of cardiopulmonary arrest Care Teams Fruit Loader Relationship Specialty Start Date End Date No, Physician PCP - General 12/30/17
[2024-10-10 09:42] VITALS: BP 124/75; PULSE 86; RESP 20; TEMP 36.6; O2SAT 100
--- NOTE | 2024-10-10 09:57 | ED.GENADULT ---
HPI - General Adult General Chief complaint: Eye Problems Stated complaint: pink eye, cold Time Seen by Provider: 10/10/24 09:40 Source: patient and RN notes reviewed Mode of arrival: ambulatory Limitations: no limitations History of Present Illness HPI narrative: 34-year-old female presents to [facility] complaining of upper respiratory symptoms for 14 days. Patient reports having cough, sinus pressure, congestion, mucopurulent nasal discharge has not got better over the last 2 weeks. Patient said today she woke up with discharge and left eye redness. Patient denies any pain or vision changes to her eye. Patient denies any fevers, body aches, chills, nausea, vomiting, diarrhea, difficulty breathing, difficulty swallowing, or chest pain. Patient has to QT congestion this morning without relief. Patient denies any known sick exposures. Patient denies any significant past medical history. Related Data Allergies Allergy/AdvReac Type Severity Reaction Status Date / Time iodine Allergy Rash Verified 11/10/21 19:45 Review of Systems Review of Systems: CONSTITUTIONAL: Denies fever, chills, body aches, or sweats. EYES: Denies visual changes, redness, or discharge. ENT: Positive for rhinorrhea, congestion. Negative for sore throat and otalgia. CARDIOVASCULAR: Denies chest pain, palpitations, or edema. RESPIRATORY: Positive for cough. Negative for dyspnea or wheezing. GASTROINTESTINAL: Denies abdominal pain, nausea, vomiting, or diarrhea. GENITOURINARY: Denies dysuria or hematuria. SKIN: Denies rash or itching. MUSCULOSKELETAL: Denies back pain, joint pain, or myalgia. NEUROLOGIC: Denies headache, numbness, or weakness. PSYCHIATRIC: Denies anxiety or depression. All other systems reviewed are negative, except as documented in HPI. PMFSH Social History Social History Smoking status: Current every day smoker Tobacco type: e-cigarettes/vaping Alcohol intake: current Alcohol use details: Occasional Substance use: never Living arrangements: with family Comments At the time of my signature, I reviewed and agree with the nursing past medical, surgical, social, and family history. There is no relevant family history pertinent to the patient complaint. Exam Narrative: GENERAL: This is a well-nourished, well-developed adult, in no apparent distress. They are non ill-appearing, nontoxic appearing. HEAD: normocephalic, atraumatic. EYES: Sclera clear/white. Vision is grossly intact. Right Conjunctiva normal. Left conjunctiva injected. No exudate present. Extraocular movements intact. EARS: External ears normal, auditory canals clear and without drainage, TMs without erythema or perforation. Hearing grossly intact. NOSE: External nose normal with no obvious nasal discharge, nasal turbinates erythematous, with rhinorrhea. Sinus tenderness to palpation to maxillary and frontal sinuses. THROAT: Mucous membranes moist, posterior pharynx erythemic without swelling or exudate. Uvula is midline. Postnasal drip present. NECK: Neck supple, non-tender without lymphadenopathy, masses or thyromegaly. CARDIOVASCULAR: Regular rate and rhythm without murmurs, gallops, or rubs. RESPIRATORY: Clear to auscultation. Breath sounds equal bilaterally. No wheezes, rales, or rhonchi. Respiratory rate normal, respiratory effort nonlabored, no respiratory distress SKIN: warm, Dry, intact with no suspicious lesions or rash, good texture and turgor. NEURO: awake, alert, and oriented to person, place and time. There were no obvious focal neurologic abnormalities. EXTREMITIES: No joint tenderness, effusion, or edema noted. BACK: Nontender without deformity. Course Course Emergency Course: Portions of this record may have been created with voice recognition software Level of Care: Express Care Visit Vital Signs Vital signs: Vital Signs Temperature 97.8 F 10/10/24 09:42 Pulse Rate 86 10/10/24 09:42 Respiratory Rate 20 10/10/24 09:42 Blood Pressure 124/75 10/10/24 09:42 Pulse Oximetry 100 10/10/24 09:42 Oxygen Delivery Room Air 10/10/24 09:42 Temperature 97.8 F 10/10/24 09:42 Pulse Rate 86 10/10/24 09:42 Respiratory Rate 20 10/10/24 09:42 Blood Pressure 124/75 10/10/24 09:42 Pulse Oximetry 100 10/10/24 09:42 Oxygen Delivery Room Air 10/10/24 09:42 Medical Decision Making MDM Narrative Medical decision making narrative: Given patient's length of symptoms is likely patient has a bacterial sinusitis. Will treat empirically with Augmentin. It also appears patient has conjunctivitis of the left eye, will prescribe polymyxin eyedrops. I will also prescribe benzonatate tablets as needed for cough. Discussed physical exam findings. Advised supportive measures and signs/symptoms to go to the ER. Pt is appropriate for outpt treatment and f/u. Differential Diagnosis Differential Diagnosis: Upper respiratory infection, viral infection, pharyngitis, sinusitis, conjunctivitis Vital Signs Vital Signs: Vital Signs Temperature 97.8 F 10/10/24 09:42 Pulse Rate 86 10/10/24 09:42 Respiratory Rate 20 10/10/24 09:42 Blood Pressure 124/75 10/10/24 09:42 Pulse Oximetry 100 10/10/24 09:42 Oxygen Delivery Room Air 10/10/24 09:42 Temperature 97.8 F 10/10/24 09:42 Pulse Rate 86 10/10/24 09:42 Respiratory Rate 20 10/10/24 09:42 Blood Pressure 124/75 10/10/24 09:42 Pulse Oximetry 100 10/10/24 09:42 Oxygen Delivery Room Air 10/10/24 09:42 Discharge Plan Discharge Clinical Impression: Acute bacterial conjunctivitis of left eye Sinusitis Qualifiers: Sinusitis location: frontal Chronicity: acute Recurrence: non-recurrent Qualified Code(s): J01.10 - Acute frontal sinusitis, unspecified Patient Disposition: Home Condition: Stable Instructions: Antibiotic Form, Sinusitis (ED), Conjunctivitis (ED) Additional Instructions: Take the antibiotics as directed and complete the course even if you start to feel better. Use the antibiotic eyedrops as directed. You may use a Neti pot saline rinse 3 times a day with lukewarm distilled water Take benzonatate tablets as needed for cough. Continue to take Tylenol or Motrin for pain. Use a humidifier or vaporizer at night. Drink plenty of water. 8-10 glasses per day. Use flonase 2 times per day for 5 days then as needed Take mucinex 2 times per day and be sure to take with 8oz of water. Follow up with Primary provider in 3-5 days Please go to the ER if he develops any difficulty breathing, worsening symptoms, or any other concerns Patient Language: Surinamese Prescriptions: New benzonatate 100 mg capsule 100 mg PO TID PRN (Reason: cough) Qty: 20 0RF polymyxin B sulf-trimethoprim 10,000 unit- 1 mg/mL drops 1 drp LEFT EYE Q3H 7 Days Qty: 10 0RF Rx Instructions: while awake; do not exceed 6 doses in 24 hours amoxicillin-pot clavulanate 875-125 mg tablet 1 tablet PO Q12H 7 Days Qty: 14 0RF Follow-up/Referrals: UNKNOWN,DOCTOR [Primary Care Provider] - Time of Disposition: 09:54
== END 2024-10-10 10:04 | disposition home or self-care (01) ==
DX: H10.32 Unspecified acute conjunctivitis, left eye (principal); F17.290 Nicotine dependence, other tobacco product, uncomplicated
CPT/HCPCS: 99213; G0463